=== PATIENT | female | born 1975 | race Asian ===

== ENCOUNTER 2016-07-12 12:22 | Outpatient (CLI) | payer OTHER ==
[~2016-07-12 12:22] MED LIST: IMITREX50 MG PO; KETOROLAC TROME10 MG PO; PERCOCET1 TA1 PO
--- NOTE | 2016-07-12 15:47 | DIAGNOSTIC IMAGING REPORT ---
PROCEDURE: XR HYSTEROSALPINGOGRAM INDICATION: Follow-up endometrial polyp. Assess tube patency. TECHNIQUE: Informed consent was obtained and the patient was advised of the usual risks and complications including infection, bleeding, and allergy. Limited pelvic speculum examination. Following sterile preparation of the cervix (Betadine), a 5 [place] hysterosalpingogram catheter advanced into the uterine cervix under direct visualization (after two attempts). Retention balloon was inflated. Subsequently, transvaginal ultrasound probe was inserted for sonogram. Under fluoroscopic visualization (3.6 minutes, 1328.05 mGy, 15 ml of Omnipaque 300 contrast material was infused. Seven fluoroscopic images were obtained in the AP, RPO, and LPO positions. In addition, sagittal and transverse high resolution transvaginal sonographic images were obtained. Following the procedure, the catheter and transvaginal probe were removed. The patient tolerated the procedure reasonably well. The patient was discharged home in satisfactory condition with instructions to call me for any untoward symptoms. COMPARISON: Comparison is made to pelvic ultrasound studies (06/06/2016, 05/15/2016, 11/19/2015), and CT abdomen and pelvis (09/15/2013) FINDINGS: Hysterosalpingogram: Uterine endometrial cavity appears normal. Bilateral fallopian tubes are normal and patent with free spillage of contrast into the peritoneum. Hysterosonogram: There are multiple cervical Nabothian cyst (previously documented). Endometrial thickness is normal (3 mm). There are linear areas of tissue along the margins of the endometrial canal which may represent synechiae. No polypoid lesions are identified. IMPRESSION: 1. Normal hysterosalpingogram with patent bilateral fallopian tubes. 2. Normal endometrial thickness with findings suggesting minor synechiae changes along the margins in the endometrial canal. However, there is no evidence of endometrial polyps at this time. 3. Multiple cervical Nabothian cysts. 4. Findings discussed with the patient.
== END 2016-07-12 23:00 ==
LOC: US SRH 12:22
DX: N84.0 Polyp of corpus uteri (principal); N88.8 Other specified noninflammatory disorders of cervix uteri
CPT/HCPCS: 81207; 83348; 90074; 90197

== ENCOUNTER 2016-07-26 15:57 | Emergency (ER) | payer OTHER ==
--- NOTE | 2016-07-26 18:52 | DIAGNOSTIC IMAGING REPORT ---
PROCEDURE: CT ABD/PELVIS WITH CONTRAST INDICATION: Right abdominal pain. Hematuria. History of uterine fibroids and ovarian cyst. TECHNIQUE: 100 ml of Isovue 300 were injected intravenously and axial images were obtained of the entire abdomen and pelvis with sagittal and coronal reformations. COMPARISON: Comparison is made hysterosalpingogram and hysterosonogram (07/12/2016), pelvic ultrasound (is 06/06/2016), and CT pelvis (09/15/2013). FINDINGS: ABDOMEN: Gallbladder, liver, spleen, pancreas, kidneys, and aorta are normal. Bowel pattern is normal, including appendix. PELVIS: There is mild prominence of the right ovary (3 cm). Left ovary is of normal size (2.8 cm). No evidence of free fluid There has been increase in large 5.5 cm left ventral exophytic fundal fibroid. There are multiple cervical Nabothian cyst (previously documented). IMPRESSION: 1. Negative CT abdomen. 2. Normal appendix. 3. No evidence of urinary tract obstruction. 4. Mild increase in left fundal fibroid (5.5 cm). 5. Otherwise negative CT pelvis. 6. Findings discussed with DANIELLA Gallagher. All CT scans at this facility use dose modulation, iterative reconstruction, and/or weight-based dosing when appropriate to reduce radiation dose to as low as reasonably achievable.
--- NOTE | 2016-07-26 18:59 | ED NURSING NOTES ---
Clinical Report - Nurses [address] [place] [address] 07/26/2016 15:58 Patient: FÉLIX GARDUNO *This is a preliminary document and is subject to change TRIAGE Triage time 16:02 Jul 26 2016. Acuity: LEVEL 3. Chief Complaint: ABDOMINAL PAIN. 16:03 07/26/16. 16:03 07/26/16. SEPSIS SCREEN: Sepsis Screen. Negative (no infection suspected/documented). ELIGIO COMA SCORE: Eligio Coma Scale: 15- eyes open spontaneously (4); best verbal response- oriented x 4 (5); best motor response- obeys commands (6). --16:12 Piper Malin R.N. 16:02 07/26/16. BP: 117/74 (regular adult cuff) taken while lying. HR: 92. RR: 18. O2 saturation: 98% on room air. Temp: 98.4 F (oral). Pain level now: 11/25. --16:12 Piper Malin R.N. Weight: 61.2 kg stated. Height/Length: 62 inches Per Patient. BMI: 24.7. --16:12 Piper Malin R.N. Medications None. --16:06 Piper Malin R.N. Medication/allergy information source: the patient. --16:12 Piper Malin R.N. Allergies No Known Drug Allergy. --16:06 Piper Malin R.N. History Arrived by private vehicle. Historian: patient. Accompanied by family. Primary physician ([facility], [facility]). 16:03 07/26/16. ( ABD pain started last night, umbilical area that has moved to RUQ, pain is constant). She has had mild, sharp abdominal pain. The pain is described as located in the RUQ. Last oral intake by patient was lunch. Treatment MANAGER BIOLOGICS: None. PAST MEDICAL HX: Immunizations: up-to-date. Last normal menstrual period now. SOCIAL HX: Never smoker. Regular alcohol use; consumes wine by the glass daily. No infectious disease exposure. ABUSE ASSESSMENT: No report of abuse. FALL RISK ASSESSMENT: Fall risk assessment completed. No fall risk identified. NUTRITIONAL RISK ASSESSMENT: The nutritional risk assessment revealed no deficiencies. FUNCTIONAL ASSESSMENT: Functional assessment: no impairments noted. LEARNING NEEDS ASSESSMENT: The learning needs assessment revealed no barriers. SKIN INTEGRITY ASSESSMENT: Skin integrity risk assessment completed. No skin integrity risk identified. --16:12 Piper Malin R.N. PROBLEMS: Ovarian Cyst. Abdominal Pain. Immunizations. UTI - Urinary Tract Infection. --16:05 Piper Malin R.N. ADDITIONAL SURGERIES: Cyst removal laporoscopy. --16:07 Piper Malin R.N. Assessment 16:03 07/26/16. --16:12 Piper Malin R.N. Interventions 16:03 07/26/16. 16:03 07/26/16. ID band on patient. To treatment room. --16:12 Piper Malin R.N. PHYSICAL ASSESSMENT 16:13 07/26/16. Ambulatory to room. GENERAL / NEURO / PSYCH: Oriented X 4. RESPIRATORY: Respirations not labored. GI / : Abdomen soft and nontender. No rebound tenderness, abdominal distention or guarding. SKIN: Skin is warm. --16:14 Piper Malin R.N. NURSING PROGRESS NOTES 16:14 07/26/16. The plan of care for this patient has been created. Patient gowned. Head of bed elevated. Reassurance given. Urine collected. Two patient identifiers checked. Call light placed in reach. Side rails up x 1. Brakes of bed on. Brakes of chair on. Patient ready for evaluation- chart flagged and PCP notified. --16:14 Piper Malin R.N. 16:15 07/26/16. ( Patient has history of ruptured cyst). --16:15 Piper Malin R.N. 16:18 07/26/2016 Site #1 started via IV in the left antecubital space with an 20g angiocath, with aseptic technique and good blood return; one attempt. Blood drawn: rainbow set. Labeled in the presence of the patient and sent to the lab. Saline lock flushed with 10 mL saline. --16:18 Paul Flores R.N. 16:18 07/26/2016 Started bag #1 1000 mL IV Fluids IV NS (Saline); at 1000 mL/hr over 1 hour(s) via site #1 via IV pump. Allergies verified and confirmed 5 rights. IV patency established. IV site checked: no pain, redness, or swelling. IV flushed thoroughly pre- and post-medication administration. Completed per protocol. --16:18 Paul Flores R.N. 16:33 07/26/2016 Toradol IVP 30 mg given over 2 minute(s) via site #1. Allergies verified and confirmed 5 rights. IV patency established. IV site checked: no pain, redness, or swelling. IV flushed thoroughly pre- and post-medication administration. IVP given by RN. --16:38 Paul Flores R.N. 17:19 07/26/2016 IV Fluids IV NS Discontinued: bag #1 infused. Total amount infused: 1000 mL. IV patency established. IV site checked: no pain, redness, or swelling. IV flushed thoroughly. --17:24 Paul Flores R.N. 17:27 07/26/16. Patient and family informed about reason for wait and about plan of care. --17:27 Paul Flores R.N. 17:28 07/26/16. The patient is resting quietly. --17:28 Paul Flores R.N. 17:45 07/26/16. ( Pt to have CT scan). --17:45 Paul Flores R.N. 17:45 07/26/16. Patient and family informed about reason for wait and about plan of care. --17:45 Paul Flores R.N. 18:26 07/26/16. ( CT completed). --18:26 Paul Flores R.N. This report is not final
--- NOTE | 2016-07-26 18:59 | ED ORDER SUMMARY ---
..... Patient: FÉLIX GARDUNO OrderSheet [facility] VisitID: [id number] [place] [address] 41y, F Registration Date/Time: 07/26/2016 ORDER SHEET Weight: 61.2 kg (stated) Allergies: No Known Drug Allergy GENERAL ORDERS: CBC w Diff Urgent (16:18 07/26/2016 JBoardley R.N. per protocol) (16:22 LMuller) CMP Urgent (16:18 07/26/2016 JBoardley R.N. per protocol) (16:22 LMuller) Amylase Urgent (16:18 07/26/2016 JBoardley R.N. per protocol) (16:22 LMuller) Lipase Urgent (16:18 07/26/2016 JBoardley R.N. per protocol) (16:22 LMuller) Urine Urgent (16:18 07/26/2016 JBoardley R.N. per protocol) (16:22 LMuller) UA-Culture if indicated Urgent (16:18 07/26/2016 JBoardley R.N. per protocol) (16:22 LMuller) CT Abd/Pel w Cont (No) (normal) Urgent (17:44 07/26/2016 HBivens A.R.N.P.) (Ack 17:44 LMuller) (18:26 JBoardley R.N.) MEDICATION ORDERS: IV FLUIDS: IV NS : initial bolus none -, then 1000 mL/hr for X1 (NOW) (16:18 07/26/2016 JBoardley R.N. per protocol) (16:18 JBoardley R.N.) Toradol IV 30 mg (NOW) (16:25 07/26/2016 HBivens A.R.N.P.) (Ack 16:35 JBoardley R.N.) (16:38 JBoardley R.N.) ORDER SHEET NOTES: [Electronically signed by Piper Malin R.N. (19:09 07/26/2016)] [Electronically signed by Annia Clemons A.R.N.P. (19:45 07/26/2016)] [Electronically locked/signed by Piper Malin R.N. (19:09 07/26/2016)]
--- NOTE | 2016-07-26 18:59 | ED CLINICAL REPORT ---
Clinical Report - Physicians/Mid Levels [facility] [address] [place] [address] 07/26/2016 15:58 Patient: FÉLIX GARDUNO Time Seen: 16:18; initial patient contact, initial documentation, patient care assumed. Arrived- By private vehicle. Historian- patient. HISTORY OF PRESENT ILLNESS Chief Complaint: ABDOMINAL PAIN. At its maximum, severity described as severe. When seen in the E.D., severity described as moderate. It is described as "pain" and sharp. No radiation. It is described as located in the right upper quadrant, right abdomen and right lower quadrant and in the periumbilical area. This started last night. It was abrupt in onset and has been constant. No nausea, loss of appetite, vomiting or diarrhea. The patient has an additional complaint of abdominal pain started around belly button and is now on the entire R side. No recent travel. Similar symptoms previously: Occasionally, as bad. ( felt similiar to when she had ovarian cyst). Recent medical care: Not recently seen/assessed. REVIEW OF SYSTEMS Last normal menstrual period- now. No constipation, hematemesis, difficulty with urination, pain with urination or urinary frequency. No bloody stools, fever, chest pain or difficulty breathing. All systems otherwise negative, except as recorded above. PAST HISTORY See nurses notes. PROBLEMS: Ovarian Cyst. Abdominal Pain. Immunizations. UTI - Urinary Tract Infection. --16:05 Piper Malin RGiftyN. ADDITIONAL SURGERIES: Cyst removal laporoscopy. --16:07 Piper Malin RJovan. SOCIAL HISTORY Never smoker. Heavy alcohol use; consumes wine by the glass daily. No drug use. No recent travel. Is a local resident. FAMILY HISTORY Negative. ADDITIONAL NOTES The nursing notes have been reviewed with agreement regarding the chief complaint, HPI, ROS, PMH and patient medications and allergies. PHYSICAL EXAM Vital Signs: 07/26/2016 16:02 BP: 117/74. HR: 92. RR: 18. O2 saturation: 98%. Temp: 98.4 F. Pain level now: 6/10. Have been reviewed as normal and appear to be correct. Appearance: Alert. Oriented X3. No acute distress. Eyes: Pupils equal, round and reactive to light. Eyes normal inspection. Neck: Normal inspection. Neck supple. CVS: Normal heart rate and rhythm. Heart sounds normal. Pulses normal. Respiratory: No respiratory distress. Breath sounds normal. Chest nontender. Abdomen: Soft. Mild tenderness in the right upper quadrant, right side of the abdomen and right lower quadrant. No guarding, rebound tenderness or Blue's, obturator or psoas sign present. Bowel sounds normal. No organomegaly. No mass. Tenderness present. Back: Normal inspection. Skin: Skin warm and dry. Normal skin color. No rash. Normal skin turgor. Extremities: Extremities exhibit normal ROM. No lower extremity edema. Neuro: Oriented X 3. No motor deficit. No sensory deficit. LABS, X-RAYS, AND EKG Laboratory Tests: UA-Culture if indicated: (LEONCIO: 07/26/2016 16:00) ( [facility] 07/26/2016 16:33) Final results Test Result Flag Units (Reference) URINE COLOR YELLOW URINE APPEARANCE SL CLOUDY URINE GLUCOSE NEGATIVE (NEGATIVE) URINE BILIRUBIN NEGATIVE (NEGATIVE) URINE KETONE NEGATIVE (NEGATIVE) URINE SPECIFIC GRAVITY 1.025 (1.010-1.030) URINE PH 6.0 (5.0-8.0) URINE PROTEIN NEGATIVE (NEGATIVE) URINE UROBILINOGEN 0.2 EU/dL (0.2-1.0) URINE NITRITE NEGATIVE (NEGATIVE) URINE BLOOD 3+ (NEGATIVE) URINE LEUK ESTERASE NEGATIVE (NEGATIVE) URINE RBC 25-50 rbc/hpf (0-1) URINE WBC 3-5 wbc/hpf (0-1) URINE EPITHELIAL CELLS 3-5 EPI/hpf (0-5) URINE BACTERIA TRACE (<1+) (NONE SEEN) URINE COMMENT CULT NOT INDICATED URINE CULTURES ARE SET-UP BASED ON THE FOLLOWING CRITERIA:POSITIVE NITRITEPOSITIVE LEUKOCYTE ESTERASEGREATER THAN 10 WHITE BLOOD CELLSMODERATE (2+) OR GREATER BACTERIA Urine: (LEONCIO: 07/26/2016 16:00) ( [facility] 07/26/2016 16:29) Final results Test Result Flag Units (Reference) URINE NEGATIVE CBC w Diff: (LEONCIO: 07/26/2016 16:15) ( MsgRcvd 07/26/2016 16:27) Final results Test Result Flag Units (Reference) WHITE BLOOD COUNT 9.2 K/uL (4.5-11.5) RED BLOOD COUNT 4.43 M/uL (4.00-5.20) HEMOGLOBIN 13.0 gm/dL (12.0-16.0) HEMATOCRIT 38.8 % (36.0-46.0) MEAN CELL VOLUME 88 fL (80-100) MEAN CORPUSCULAR HGB 29 pg (26-34) MEAN CORPUSCULAR HGB CONC 34 g/dL (31-37) RED CELL DISTRIBUTION WIDTH 13.1 % (11.6-14.8) PLATELET COUNT 211 K/uL (150-400) NEUTROPHIL % 67.4 % (50-75) LYMPH % 20.8 L % (25-40) MONO % 5.7 % (3-14) EOSINOPHIL % 6.0 H % (0-4) BASOPHIL % 0.1 % (0-2) CMP: (LEONCIO: 07/26/2016 16:15) ( MsgRcvd 07/26/2016 16:39) Final results Test Result Flag Units (Reference) GLUCOSE 87 mg/dL (70-110) BUN 14 mg/dL (7-18) CREATININE 0.8 mg/dL (0.6-1.3) Estimated GFR >60 mL/min Estimated GFR- >60 mL/min Note: Persistent reduction over 3 months in eGFR<60 mL/min/1.73 m2 defines CKD. Patients with eGFR values>=60 mL/min/1.73 m2 may also have CKD if evidence ofpersistent proteinuria. Additional information may be foundat www.kidney.org. SODIUM 143 mmol/L (136-145) POTASSIUM 3.4 L mmol/L (3.5-5.1) CHLORIDE 106 mmol/L (98-107) CARBON DIOXIDE 25 mmol/L (21-32) CALCIUM 8.4 L mg/dL (8.5-10.1) TOTAL PROTEIN 7.5 g/dL (6.4-8.2) ALBUMIN 4.2 g/dL (3.3-5.0) BILIRUBIN, TOTAL 0.3 mg/dL (0.0-1.0) ALKALINE PHOSPHATASE 54 U/L (46-116) AST (SGOT) 13 L U/L (15-37) ALT (SGPT) 15 U/L (12-78) LIPASE 247 U/L (73-393) AMYLASE 85 U/L (25-115) . PROGRESS AND PROCEDURES Course of Care: 17:44 07/26/16. pt updated with lab results and would like to get ct done so she is not worrying about what is wrong with her. Patient counseled in person regarding the patient's stable condition, test results and diagnosis. 18:58. Differential Diagnosis: I considered acute appendicitis, mesenteric lymphadenitis, diverticulitis, colon cancer, small bowel obstruction, adhesions, biliary colic, cholecystitis, cholelithiasis, hepatitis, pancreatitis, common bile duct obstruction, urinary tract infection, ureterolithiasis, ovarian cyst, ovarian torsion, , ectopic , pelvic inflammatory disease, pelvic abscess, endometriosis and viral syndrome as a possible cause of abdominal pain in this patient. This is a partial list of diagnoses considered. Above considerations are based on history, physical exam, laboratory data and other information. Differential diagnosis was discussed with patient. Disposition: Discharged home in good and unchanged condition (18:58). Condition: good and stable. CLINICAL IMPRESSION Acute periumbilical abdominal pain of undetermined cause. INSTRUCTIONS Warnings: GENERAL WARNINGS: Return or contact your physician immediately if your condition worsens or changes unexpectedly, if not improving as expected, or if other problems arise. SPECIFICALLY, return if you develop pain in the abdomen or pelvis, fever, vomiting, the inability to keep fluids down, blood in vomitus, blood in diarrhea, fainting or lightheadedness. Prescription Medications: Ultram 50 mg tablets: take 1-2 orally every 6 hours as needed for pain. Dispense twenty (20). No refills. Substitution is permissible. Follow-up: Follow up with your doctor in about two days even if well. Call for an appointment. Summary of care provided to patient. Understanding of the discharge instructions verbalized by patient. (Electronically signed by Annia Clemons A.R.N.P. 07/26/2016 19:45)
--- NOTE | 2016-07-26 18:59 | ED NURSING NOTES ---
Clinical Report - Nurses [address] [place] [address] 07/26/2016 15:58 Patient: FÉLIX GARDUNO *This is a preliminary document and is subject to change TRIAGE Triage time 16:02 Jul 26 2016. Acuity: LEVEL 3. Chief Complaint: ABDOMINAL PAIN. 16:03 07/26/16. 16:03 07/26/16. SEPSIS SCREEN: Sepsis Screen. Negative (no infection suspected/documented). ELIGIO COMA SCORE: Eligio Coma Scale: 15- eyes open spontaneously (4); best verbal response- oriented x 4 (5); best motor response- obeys commands (6). --16:12 Piper Malin R.N. 16:02 07/26/16. BP: 117/74 (regular adult cuff) taken while lying. HR: 92. RR: 18. O2 saturation: 98% on room air. Temp: 98.4 F (oral). Pain level now: 11/25. --16:12 Piper Malin R.N. Weight: 61.2 kg stated. Height/Length: 62 inches Per Patient. BMI: 24.7. --16:12 Piper Malin R.N. Medications None. --16:06 Piper Malin R.N. Medication/allergy information source: the patient. --16:12 Piper Malin R.N. Allergies No Known Drug Allergy. --16:06 Piper Malin R.N. History Arrived by private vehicle. Historian: patient. Accompanied by family. Primary physician ([facility], [facility]). 16:03 07/26/16. ( ABD pain started last night, umbilical area that has moved to RUQ, pain is constant). She has had mild, sharp abdominal pain. The pain is described as located in the RUQ. Last oral intake by patient was lunch. Treatment MANAGEMENT SERVICES TECHNICIAN: None. PAST MEDICAL HX: Immunizations: up-to-date. Last normal menstrual period now. SOCIAL HX: Never smoker. Regular alcohol use; consumes wine by the glass daily. No infectious disease exposure. ABUSE ASSESSMENT: No report of abuse. FALL RISK ASSESSMENT: Fall risk assessment completed. No fall risk identified. NUTRITIONAL RISK ASSESSMENT: The nutritional risk assessment revealed no deficiencies. FUNCTIONAL ASSESSMENT: Functional assessment: no impairments noted. LEARNING NEEDS ASSESSMENT: The learning needs assessment revealed no barriers. SKIN INTEGRITY ASSESSMENT: Skin integrity risk assessment completed. No skin integrity risk identified. --16:12 Piper Malin R.N. PROBLEMS: Ovarian Cyst. Abdominal Pain. Immunizations. UTI - Urinary Tract Infection. --16:05 Piper Malin R.N. ADDITIONAL SURGERIES: Cyst removal laporoscopy. --16:07 Piper Malin R.N. Assessment 16:03 07/26/16. --16:12 Piper Malin R.N. Interventions 16:03 07/26/16. 16:03 07/26/16. ID band on patient. To treatment room. --16:12 Piper Malin R.N. PHYSICAL ASSESSMENT 16:13 07/26/16. Ambulatory to room. GENERAL / NEURO / PSYCH: Oriented X 4. RESPIRATORY: Respirations not labored. GI / : Abdomen soft and nontender. No rebound tenderness, abdominal distention or guarding. SKIN: Skin is warm. --16:14 Piper Malin R.N. NURSING PROGRESS NOTES 16:14 07/26/16. The plan of care for this patient has been created. Patient gowned. Head of bed elevated. Reassurance given. Urine collected. Two patient identifiers checked. Call light placed in reach. Side rails up x 1. Brakes of bed on. Brakes of chair on. Patient ready for evaluation- chart flagged and PCP notified. --16:14 Piper Malin R.N. 16:15 07/26/16. ( Patient has history of ruptured cyst). --16:15 Piper Malin R.N. 16:18 07/26/2016 Site #1 started via IV in the left antecubital space with an 20g angiocath, with aseptic technique and good blood return; one attempt. Blood drawn: rainbow set. Labeled in the presence of the patient and sent to the lab. Saline lock flushed with 10 mL saline. --16:18 Paul Flores R.N. 16:18 07/26/2016 Started bag #1 1000 mL IV Fluids IV NS (Saline); at 1000 mL/hr over 1 hour(s) via site #1 via IV pump. Allergies verified and confirmed 5 rights. IV patency established. IV site checked: no pain, redness, or swelling. IV flushed thoroughly pre- and post-medication administration. Completed per protocol. --16:18 Paul Flores R.N. 16:33 07/26/2016 Toradol IVP 30 mg given over 2 minute(s) via site #1. Allergies verified and confirmed 5 rights. IV patency established. IV site checked: no pain, redness, or swelling. IV flushed thoroughly pre- and post-medication administration. IVP given by RN. --16:38 Paul Flores R.N. 17:19 07/26/2016 IV Fluids IV NS Discontinued: bag #1 infused. Total amount infused: 1000 mL. IV patency established. IV site checked: no pain, redness, or swelling. IV flushed thoroughly. --17:24 Paul Flores R.N. 17:27 07/26/16. Patient and family informed about reason for wait and about plan of care. --17:27 Paul Flores R.N. 17:28 07/26/16. The patient is resting quietly. --17:28 Paul Flores R.N. 17:45 07/26/16. ( Pt to have CT scan). --17:45 Paul Flores R.N. 17:45 07/26/16. Patient and family informed about reason for wait and about plan of care. --17:45 Paul Flores R.N. 18:26 07/26/16. ( CT completed). --18:26 Paul Flores R.N. This report is not final
--- NOTE | 2016-07-26 18:59 | ED ORDER SUMMARY ---
..... Patient: FÉLIX GARDUNO OrderSheet [facility] VisitID: [id number] [place] [address] 41y, F Registration Date/Time: 07/26/2016 ORDER SHEET Weight: 61.2 kg (stated) Allergies: No Known Drug Allergy GENERAL ORDERS: CBC w Diff Urgent (16:18 07/26/2016 JBoardley R.N. per protocol) (16:22 LMuller) CMP Urgent (16:18 07/26/2016 JBoardley R.N. per protocol) (16:22 LMuller) Amylase Urgent (16:18 07/26/2016 JBoardley R.N. per protocol) (16:22 LMuller) Lipase Urgent (16:18 07/26/2016 JBoardley R.N. per protocol) (16:22 LMuller) Urine Urgent (16:18 07/26/2016 JBoardley R.N. per protocol) (16:22 LMuller) UA-Culture if indicated Urgent (16:18 07/26/2016 JBoardley R.N. per protocol) (16:22 LMuller) CT Abd/Pel w Cont (No) (normal) Urgent (17:44 07/26/2016 HBivens A.R.N.P.) (Ack 17:44 LMuller) (18:26 JBoardley R.N.) MEDICATION ORDERS: IV FLUIDS: IV NS : initial bolus none -, then 1000 mL/hr for X1 (NOW) (16:18 07/26/2016 JBoardley R.N. per protocol) (16:18 JBoardley R.N.) Toradol IV 30 mg (NOW) (16:25 07/26/2016 HBivens A.R.N.P.) (Ack 16:35 JBoardley R.N.) (16:38 JBoardley R.N.) ORDER SHEET NOTES: [Electronically signed by Piper Malin R.N. (19:09 07/26/2016)] [Electronically signed by Annia Clemons A.R.N.P. (19:45 07/26/2016)] [Electronically locked/signed by Piper Malin R.N. (19:09 07/26/2016)]
--- NOTE | 2016-07-26 19:45 | ED MAR SUMMARY ---
..... Medication Administration Record [facility] [address] [place] [address] Patient: FÉLIX GARDUNO Visit ID: [id number] 41y, F Weight: 61.2 kg Height/Length: 62 in BMI: 24.7 ALLERGIES: No Known Drug Allergy Start 16:18 07/26/2016 Paul Flores R.N., Stop 17:19 07/26/2016 Paul Flores R.N. Medication Administered: IV NS (SALINE), Dose: IV Fluids over 1 hour(s), Rate: 1000 mL/hr, Dispensed: 1000 mL bag, Site: #1 left AC. Medication Ordered: IV NS : initial bolus none -, then 1000 mL/hr for X1 (NOW). Given 16:33 07/26/2016 Paul Flores R.N. Medication Administered: TORADOL [IVP], Dose: 30 mg IVP over 2 minute(s), Site: #1 left AC. Medication Ordered: Toradol IV 30 mg (NOW).
--- NOTE | 2016-07-26 19:45 | ED MED RECONCILIATION SUMMARY ---
Patient: FÉLIX GARDUNO A Medication Reconciliation Report [facility] VisitID: [id number] [place] [address] 41y, F Registration Date/Time: 07/26/2016 Weight: 61.2 kg Height/Length: 62 in. BMI: 24.7 ALLERGIES: No Known Drug Allergy The patient's Home Medications are listed below: NONE. The source(s) of the original Home Medication information: patient The following Medications were given to the patient in the Emergency Department: IV NS IV Fluids bolus 0, then 1000 mL/hr, administered: 07/26/2016 4:18:00 PM Toradol [IVP] IVP 30 mg, administered: 07/26/2016 4:33:00 PM The following Medications were prescribed to the patient: Ultram 50 mg tablets: take 1-2 orally every 6 hours as needed for pain. Dispense twenty (20). No refills. Substitution is permissible. -- Annia Clemons A.R.N.P.
--- NOTE | 2016-07-26 19:45 | ED DISCHARGE INSTRUCTIONS ---
Patient: FÉLIX GARDUNO General Instructions [facility] VisitID: [id number] [place] [address] 41y, F Registration Date/Time: 07/26/2016 Acute periumbilical abdominal pain of undetermined cause. INSTRUCTIONS Warnings: GENERAL WARNINGS: Return or contact your physician immediately if your condition worsens or changes unexpectedly, if not improving as expected, or if other problems arise. SPECIFICALLY, return if you develop pain in the abdomen or pelvis, fever, vomiting, the inability to keep fluids down, blood in vomitus, blood in diarrhea, fainting or lightheadedness. Prescription Medications: Ultram 50 mg tablets: take 1-2 orally every 6 hours as needed for pain. Dispense twenty (20). No refills. Substitution is permissible. Follow-up: Follow up with your doctor in about two days even if well. Call for an appointment. Summary of care provided to patient. Understanding of the discharge instructions verbalized by patient. ADDITIONAL INFORMATION Abdominal Pain, Unknown Cause (Female) The exact cause of your abdominal (stomach) pain is not certain. This does not mean that this is something to worry about, or the right tests were not done. Everyone likes to know the exact cause of the problem, but sometimes with abdominal pain, there is no clear-cut cause, and this could be a good thing. The good news is that your symptoms can be treated, and you will feel better. Your condition does not seem serious now; however, sometimes the signs of a serious problem may take more time to appear. For this reason,it is important for you to watch for any new symptoms, problems,or worsening of your condition. Over the next few days, the abdominal pain may come and go, or be continuous. Other common symptoms can include nausea and vomiting. Sometimes it can be difficult to tell if you feel nauseous, you may just feel bad and not associate that feeling with nausea. Constipation, diarrhea, and a fever may go along with the pain. The pain may continue even if treated correctly over the following days. Depending on how things go, sometimes the cause can become clear and may require further or different treatment. Additional evaluations, medications, or tests may be needed. Home care Your health care provider may prescribe medications for pain, symptoms, or an infection. Follow the health care provider's instructions for taking these medications. General care Rest until your next exam. No strenuous activities. Try to find positions that ease discomfort. A small pillow placed on the abdomen may help relieve pain. Something warm on your abdomen (such as a heating pad) may help, but be careful not to burn yourself. Diet Do not force yourself to eat, especially if having cramps, vomiting, or diarrhea. Water is important so you do not get dehydrated. Soup may also be good. Sports drinks may also help, especially if they are not too acidic. Make sure you don't drink sugary drinks as this can make things worse. Take liquids in small amounts. Do not guzzle them. Caffeine sometimes makes the pain and cramping worse. Avoid dairy products if you have vomiting or diarrhea. Don't eat large amounts at a time. Wait a few minutes between bites. Eat a diet low in fiber (called a low-residue diet). Foods allowed include refined breads, white rice, fruit and vegetable juices without pulp, tender meats. These foods will pass more easily through the intestine. Avoid whole-grain foods, whole fruits and vegetables, meats, seeds and nuts, fried or fatty foods, dairy, alcohol and spicy foods until your symptoms go away. Follow-up care Follow up with your health care provider as instructed, or if your pain does not begin to improve in the next 24 hours. When to seek medical care Seek prompt medical care if any of the following occur: Pain gets worse or moves to the right lower abdomen New or worsening vomiting or diarrhea Swelling of the abdomen Unable to pass stool for more than three days Fever of 100.4F (38C) or higher, or as directed by your healthcare provider. Blood in vomit or bowel movements (dark red or black color) Jaundice (yellow color of eyes and skin) Weakness, dizziness Chest, arm, back, neck or jaw pain Unexpected vaginal bleeding or missed period Call 911 Call emergency services if any of the following occur: Trouble breathing Confusion Fainting or loss of consciousness Rapid heart rate Seizure Abdominal Pain,Possible Appendicitis [Repeat Exam, Female] Based on your visit today, the exact cause of your abdominal (stomach) pain is not certain. However, you do have some of the early signs of APPENDICITIS. Early in an appendix infection the symptoms can be similar to a simple "stomach ache" or "stomach flu". Therefore, the diagnosis can be hard to make. Since an appendix infection is a serious condition, it is important to know if this is the cause of your symptoms. WAITING for more time to pass and repeating the exam is the best way to find out whether you have appendicitis. Within the next 12-24 hours the cause of your stomach pain should become clear. It is important for you to watch for any new symptoms or worsening of your condition. (See below). Home Care: Rest until your next exam. No strenuous activities. Eat a diet low in fiber (called a low-residue diet). Foods allowed include refined breads, white rice, fruit and vegetable juices without pulp, tender meats. These foods will pass more easily through the intestine. Avoid whole-grain foods, whole fruits and vegetables, meats, seeds and nuts, fried or fatty foods, dairy, alcohol and spicy foods until your symptoms go away. In some cases, you may be asked not to eat or drink anything until you are re-examined. Return for another exam exactly as directed. Follow Up with your doctor or this facility as directed. Get Prompt Medical Attention if any of the following occur: Pain gets worse or moves to the right lower abdomen New or worsening vomiting or diarrhea Swelling of the abdomen Unable to pass stool for more than three days Fever of 100.4F (38C) or higher, or as directed by your healthcare provider Blood in vomit or bowel movements (dark red or black color) Weakness, dizziness or fainting Unexpected vaginal bleeding Tramadol Hydrochloride Oral tablet What is this medicine? TRAMADOL (TRA ma dole) is a pain reliever. It is used to treat moderate to severe pain in adults. How should I use this medicine? Take this medicine by mouth with a full glass of water. Follow the directions on the prescription label. If the medicine upsets your stomach, take it with food or milk. Do not take more medicine than you are told to take. Talk to your payroll and benefits analyst regarding the use of this medicine in children. Special care may be needed. What side effects may I notice from receiving this medicine? Side effects that you should report to your doctor or health careers adviser as soon as possible: allergic reactions like skin rash, itching or hives, swelling of the face, lips, or tongue breathing difficulties, wheezing confusion itching light headedness or fainting spells redness, blistering, peeling or loosening of the skin, including inside the mouth seizures Side effects that usually do not require medical attention (report to your doctor or health careers adviser if they continue or are bothersome): constipation dizziness drowsiness headache nausea, vomiting What may interact with this medicine? Do not take this medicine with any of the following medications: MAOIs like Carbex, Eldepryl, Marplan, Nardil, and Parnate This medicine may also interact with the following medications: alcohol or medicines that contain alcohol antihistamines benzodiazepines bupropion carbamazepine or oxcarbazepine clozapine cyclobenzaprine digoxin furazolidone linezolid medicines for depression, anxiety, or psychotic disturbances medicines for migraine headache like almotriptan, eletriptan, frovatriptan, naratriptan, rizatriptan, sumatriptan, zolmitriptan medicines for pain like pentazocine, buprenorphine, butorphanol, meperidine, nalbuphine, and propoxyphene medicines for sleep muscle relaxants naltrexone phenobarbital phenothiazines like perphenazine, thioridazine, chlorpromazine, mesoridazine, fluphenazine, prochlorperazine, promazine, and trifluoperazine procarbazine warfarin What if I miss a dose? If you miss a dose, take it as soon as you can. If it is almost time for your next dose, take only that dose. Do not take double or extra doses. Where should I keep my medicine? Keep out of the reach of children. Store at room temperature between 15 and 30 degrees C (59 and 86 degrees F). Keep container tightly closed. Throw away any unused medicine after the expiration date. What should I tell my health care provider before I take this medicine? They need to know if you have any of these conditions: brain tumor depression drug abuse or addiction head injury if you frequently drink alcohol containing drinks kidney disease or trouble passing urine liver disease lung disease, asthma, or breathing problems seizures or epilepsy suicidal thoughts, plans, or attempt; a previous suicide attempt by you or a family member an unusual or allergic reaction to tramadol, codeine, other medicines, foods, dyes, or preservatives or trying to get breast-feeding What should I watch for while using this medicine? Tell your doctor or health careers adviser if your pain does not go away, if it gets worse, or if you have new or a different type of pain. You may develop tolerance to the medicine. Tolerance means that you will need a higher dose of the medicine for pain relief. Tolerance is normal and is expected if you take this medicine for a long time. Do not suddenly stop taking your medicine because you may develop a severe reaction. Your body becomes used to the medicine. This does NOT mean you are addicted. Addiction is a behavior related to getting and using a drug for a non-medical reason. If you have pain, you have a medical reason to take pain medicine. Your doctor will tell you how much medicine to take. If your doctor wants you to stop the medicine, the dose will be slowly lowered over time to avoid any side effects. You may get drowsy or dizzy. Do not drive, use machinery, or do anything that needs mental alertness until you know how this medicine affects you. Do not stand or sit up quickly, especially if you are an older patient. This reduces the risk of dizzy or fainting spells. Alcohol can increase or decrease the effects of this medicine. Avoid alcoholic drinks. You may have constipation. Try to have a bowel movement at least every 2 to 3 days. If you do not have a bowel movement for 3 days, call your doctor or health careers adviser. Your mouth may get dry. Chewing sugarless gum or sucking hard candy, and drinking plenty of water may help. Contact your doctor if the problem does not go away or is severe. You have been given the following additional information: Abdominal Pain, Unknown Cause, (Female) Abdominal Pain, Possible Appendicitis (Female) Tramadol Hydrochloride Oral tablet (Electronically signed by Annia Clemons A.R.N.P. 07/26/2016 19:45)
--- NOTE | 2016-07-26 19:45 | ED MED RECONCILIATION SUMMARY ---
Patient: FÉLIX GARDUNO A Medication Reconciliation Report [facility] VisitID: [id number] [place] [address] 41y, F Registration Date/Time: 07/26/2016 Weight: 61.2 kg Height/Length: 62 in. BMI: 24.7 ALLERGIES: No Known Drug Allergy The patient's Home Medications are listed below: NONE. The source(s) of the original Home Medication information: patient The following Medications were given to the patient in the Emergency Department: IV NS IV Fluids bolus 0, then 1000 mL/hr, administered: 07/26/2016 4:18:00 PM Toradol [IVP] IVP 30 mg, administered: 07/26/2016 4:33:00 PM The following Medications were prescribed to the patient: Ultram 50 mg tablets: take 1-2 orally every 6 hours as needed for pain. Dispense twenty (20). No refills. Substitution is permissible. -- Annia Clemons A.R.N.P.
--- NOTE | 2016-07-26 19:45 | ED MAR SUMMARY ---
..... Medication Administration Record [facility] [address] [place] [address] Patient: FÉLIX GARDUNO Visit ID: [id number] 41y, F Weight: 61.2 kg Height/Length: 62 in BMI: 24.7 ALLERGIES: No Known Drug Allergy Start 16:18 07/26/2016 Paul Flores R.N., Stop 17:19 07/26/2016 Paul Flores R.N. Medication Administered: IV NS (SALINE), Dose: IV Fluids over 1 hour(s), Rate: 1000 mL/hr, Dispensed: 1000 mL bag, Site: #1 left AC. Medication Ordered: IV NS : initial bolus none -, then 1000 mL/hr for X1 (NOW). Given 16:33 07/26/2016 Paul Flores R.N. Medication Administered: TORADOL [IVP], Dose: 30 mg IVP over 2 minute(s), Site: #1 left AC. Medication Ordered: Toradol IV 30 mg (NOW).
== END 2016-07-26 19:05 | disposition home or self-care (01) ==
LOC: ED SRH 15:57
DX: R10.33 Periumbilical pain (principal)
CPT/HCPCS: 90004; 90100; 92235; 92530; 93070; 95059